=== PATIENT | female | born 1995 | race Caucasian/White ===

== ENCOUNTER 2016-12-29 05:36 | Emergency (ER) | payer OTHER ==
[~2016-12-29] VITALS: Ht 172.7 cm; Wt 62.2 kg
[2016-12-29 05:39] VITALS: TEMP 36.8; Ht 172.7 cm; Wt 62.2 kg
--- NOTE | 2016-12-29 05:47 | EMERGENCY ROOM VISIT NOTE ---
History Report prepared by Deng: Neno Deluca Under the Supervision of: Dr. Ashley Garvey M.D. First contact with patient: 05:43 Chief Complaint: RESPIRATORY PROBLEMS Stated Complaint: HAVING TROUBLE BREATHING,CHEST TIGHTNESS History of Present Illness The patient is a 21 year old female who presents to the Emergency Room with complaints of a constant panic attack beginning 3.5 hours ago. The patient states she called her boyfriend when her symptoms began because she could not sleep. She reports her symptoms subsided, but then 2 hours ago, they intensified again. The patient notes she was breathing really fast and experiencing numbness to her hands and jaw pain. She states she has an exam , but it is nothing she needs to be anxious about. The patient reports she experienced chest pain on the way here, but it subsided and is minimal now. She notes her boyfriend lives in [facility], and she is from [place]. The patient states they have been long distant for two years now, and they have not had problems. 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 The patient notes she has an IUD, so she no longer gets her menstrual cycle. She denies alcohol use, medication use, the chance of , smoking, history of panic attacks, vomiting, leg pain, leg swelling, and urinary symptoms. Source of History: patient Onset: 3.5 hours ago Position: other (global) Quality: other (panic attack) Timing: constant Associated Symptoms: + chest pain, + SOB, + numbness (hands), No vomiting, No urinary symptoms Note: Associated symptoms: jaw pain Denies: alcohol use, medication use, chance of , smoking, history of panic attacks, leg pain, and leg swelling. Review of Systems See HPI for pertinent positives & negatives. A total of 10 systems reviewed and were otherwise negative. Past Medical & Surgical Medical Problems: (1) No Known Active Medical Problems Family History Diabetes mellitus Social History Smoking Status: Never Smoker Smokeless Tobacco Use: No Alcohol Use: occasionally Marital Status: single Housing Status: lives with roommate Occupation Status: student Current/Historical Medications Scheduled Iud's (Paragard Intrauterine Nailing Machine Operator Automatic), 1 DOSE CONTINOUS Scheduled PRN Acetaminophen (Tylenol), 1,000 MG PO Q4 PRN for Pain or Fever Hydroxyzine Pamoate (Vistaril), 25 MG PO Q6 PRN for Anxiety Allergies Coded Allergies: No Known Allergies (Unverified , 12/29/16) Physical Exam Vital Signs Date Time Temp Pulse Resp B/P (MAP) Pulse Ox O2 Delivery O2 Flow Rate FiO2 12/29/16 06:58 52 114/78 98 Room Air 12/29/16 06:21 53 18 115/78 98 Room Air 12/29/16 06:18 61 12/29/16 05:46 Room Air 100 12/29/16 05:39 36.8 95 28 140/92 100 Room Air Physical Exam Vital signs reviewed. General: Anxious-appearing 21 year female, in no significant distress. HEENT: No scleral icterus, PERRLA, neck supple. Atraumatic. Cardiovascular: Regular rate and rhythm, no extra sounds. Pulmonary: Clear to auscultation bilaterally, normal work of breathing. Abdomen: Soft, nontender, nondistended, positive bowel sounds. Musculoskeletal: Atraumatic, no peripheral edema. Neurologic: Patient awake alert and oriented x 3 Skin: Warm, dry, no rash Medical Decision & Procedures ER Provider Diagnostic Interpretation: Chest x-ray to my interpretation reveals no evidence of focal lung consolidation or failure. There is no pneumothorax. Laboratory Results 12/29/16 06:15 Red Blood Count 5.24, Mean Corpuscular Volume 78.4, Mean Corpuscular Hemoglobin 27.3, Mean Corpuscular Hemoglobin Concent 34.8, Mean Platelet Volume 8.7, Neutrophils (%) (Auto) 36.7, Lymphocytes (%) (Auto) 49.0, Monocytes (%) (Auto) 10.1, Eosinophils (%) (Auto) 3.5, Basophils (%) (Auto) 0.7, Neutrophils # (Auto ) 2.18, Lymphocytes # (Auto) 2.91, Monocytes # (Auto) 0.60, Eosinophils # (Auto ) 0.21, Basophils # (Auto) 0.04 12/29/16 06:15 Test 12/29/16 06:15 12/29/16 06:20 White Blood Count 5.94 K/uL (4.8-10.8) Red Blood Count 5.24 M/uL (4.2-5.4) Hemoglobin 14.3 g/dL (12.0-16.0) Hematocrit 41.1 % (37-47) Mean Corpuscular Volume 78.4 fL (80-100) Mean Corpuscular Hemoglobin 27.3 pg (25-34) Mean Corpuscular Hemoglobin Concent 34.8 g/dl (32-36) Platelet Count 250 K/uL (130-400) Mean Platelet Volume 8.7 fL (7.4-10.4) Neutrophils (%) (Auto) 36.7 % Lymphocytes (%) (Auto) 49.0 % Monocytes (%) (Auto) 10.1 % Eosinophils (%) (Auto) 3.5 % Basophils (%) (Auto) 0.7 % Neutrophils # (Auto) 2.18 K/uL (1.4-6.5) Lymphocytes # (Auto) 2.91 K/uL (1.2-3.4) Monocytes # (Auto) 0.60 K/uL (0.11-0.59) Eosinophils # (Auto) 0.21 K/uL (0-0.5) Basophils # (Auto) 0.04 K/uL (0-0.2) RDW Standard Deviation 42.1 fL (36.4-46.3) RDW Coefficient of Variation 14.6 % (11.5-14.5) Immature Granulocyte % (Auto) 0.0 % Immature Granulocyte # (Auto) 0.00 K/uL (0.00-0.02) Anion Gap 9.0 mmol/L (3-11) Est Creatinine Clear Calc Drug Dose 99.6 ml/min Estimated GFR () 109.6 Estimated GFR (Non- 94.6 BUN/Creatinine Ratio 10.1 (10-20) Calcium Level 10.0 mg/dl (8.5-10.1) Total Bilirubin 0.4 mg/dl (0.2-1) Direct Bilirubin < 0.1 mg/dl (0-0.2) Aspartate Amino Transf (AST/SGOT) 22 U/L (15-37) Alanine Aminotransferase (ALT/SGPT) 18 U/L (12-78) Alkaline Phosphatase 47 U/L (45-117) Total Protein 8.4 gm/dl (6.4-8.2) Albumin 4.4 gm/dl (3.4-5.0) Human Chorionic Gonadotropin, Qual NEG (NEG) Bedside D-Dimer 328 ng/mlFEU (0-450) Medications Administered Medications (Trade) Dose Ordered Sig/Carla Route Start Time Stop Time Status Last Admin Dose Admin Hydroxyzine HCl (Vistaril Tab) 25 mg NOW STAT PO 12/29/16 06:02 12/29/16 06:05 DC 12/29/16 06:19 25 MG Potassium Chloride (Klor-Con M10) 20 meq NOW STAT PO 12/29/16 06:50 12/29/16 06:51 DC 12/29/16 06:57 20 MEQ ECG Indication: SOB/dyspnea Rate (beats per minute): 61 Rhythm: normal sinus Findings: no acute ischemic change, no ectopy Medical Decision Differential diagnosis: Etiologies such as mood disorder, infection, hypoglycemia, electrolyte abnormalities, cardiac sources, intracerebral event, toxicologic, neurologic, as well as others were entertained. This patient was evaluated and appeared to be in no significant distress. She was somewhat anxious on my evaluation. Patient was placed on the panel monitor and found to have stable vital signs. Patient was given Vistaril 25 mg by mouth. EKG was obtained and reveals no evidence of ectopy or ischemia. Chest x-ray is clear. Patient's laboratory work reveals a negative d-dimer and a mild hypokalemia at 3.2. Patient was given 20 mEq of oral potassium. Patient was feeling much improved on my reevaluation. She was discharged to follow-up with [facility]. She will return to the ER for worsening of symptoms or any medical concerns. Impression Primary Impression: Anxiety Additional Impression: Hypokalemia Scribe Attestation The scribe's documentation has been prepared under my direction and personally reviewed by me in its entirety. I confirm that the note above accurately reflects all work, treatment, procedures, and medical decision making performed by me. Departure Information Prescriptions Hydroxyzine Pamoate (VISTARIL) 25 Mg Cap 25 MG PO Q6 Y for Anxiety, #20 CAP Prov: Ashley Garvey M.D. 12/29/16 Referrals No Doctor, Assigned (PCP) Patient Instructions My [facility] Health Problem Qualifiers
[2016-12-29] MEDS ORDERED: hydrOXYzine HCL 25 MG TAB PO STA (06:02)
[2016-12-29 06:28] LABS: BASO % 0.7 %; BASO ABS # 0.04 K/uL (0-0.2); COMPLETE YES; EOS % 3.5 %; HEMATOCRIT 41.1 % (37-47); LYMPH ABS # 2.91 K/uL (1.2-3.4); MEAN CELL VOLUME 78.4 fL (80-100); MEAN CORPUSCULAR HEMOGLOBIN 27.3 pg (25-34); MEAN CORPUSCULAR HGB CONC 34.8 g/dl (32-36); MEAN PLATELET VOLUME 8.7 fL (7.4-10.4); MONO % 10.1 %; NEUT % 36.7 %; PLATELET COUNT 250 K/uL (130-400); RED BLOOD COUNT 5.24 M/uL (4.2-5.4); WHITE BLOOD COUNT 5.94 K/uL (4.8-10.8)
--- NOTE | 2016-12-29 06:36 | DIAGNOSTIC IMAGING REPORT ---
CHEST ONE VIEW PORTABLE HISTORY: 21 years-old Female SOB, anxiety acute shortness of breath with anxiety COMPARISON: None available TECHNIQUE: Portable upright AP view of the chest FINDINGS: Cardiomediastinal and hilar silhouettes are within normal limits. No pneumothorax, pleural effusion, focal airspace consolidation or overt pulmonary edema. Bones are grossly intact. IMPRESSION: No acute cardiopulmonary process. The above report was generated using voice recognition software. It may contain grammatical, syntax or spelling errors. Electronically signed by: Nelson Haney M.D. 12/29/2016 6:35 AM Dictated Date/Time: 12/29/2016 6:34 AM
[2016-12-29] MEDS ORDERED: ACET-1256 PO (06:42)
[2016-12-29] MEDS ORDERED: IUD'IUD (06:42)
[2016-12-29 06:45] LABS: ALT/SGPT 18 U/L (12-78); BLOOD UREA NITROGEN 9 mg/dl (7-18); BUN/CREATININE RATIO 10.1 (10-20); CARBON DIOXIDE 25 mmol/L (21-32); CHLORIDE 106 mmol/L (98-107); CREATININE 0.87 mg/dl (0.60-1.20); GLUCOSE 93 mg/dl (70-99); POTASSIUM 3.2 mmol/L (3.5-5.1); SODIUM 140 mmol/L (136-145)
[2016-12-29 06:48] LABS: ALKALINE PHOSPHATASE 47 U/L (45-117); AST/SGOT 22 U/L (15-37)
[2016-12-29] MEDS ORDERED: POTASSIUM CHLORIDE 10 MEQ TABCR PO STA (06:50)
[2016-12-29 06:52] LABS: PREG INTERNAL NEGATIVE QC NEG CLEAR BACKGROUND; PREG INTERNAL POSITIVE QC POS CONTROL LINE
[2016-12-29 06:58] VITALS: BP 114/78; PULSE 52; O2SAT 98
[2016-12-29] MEDS ORDERED: HYDR1CAP85 PO (07:12)
== END 2016-12-29 07:20 | disposition home or self-care (01) ==
LOC: C.EDB 05:38
DX: F41.9 Anxiety disorder, unspecified (principal); E87.6 Hypokalemia; R20.0 Anesthesia of skin; R06.00 Dyspnea, unspecified